=== PATIENT | female | born 1985 | race Caucasian/White ===

== ENCOUNTER → 2018-07-16 18:22 | Outpatient (CLI) | payer OTHER, SELFPAY ==
[2018-07-16 18:46] LABS: Add Manual Diff / Slide Review NO; Basophils Absolute Auto 100 /uL (0-100); Basophils Percent Auto 0.6 % (0-2); Eosinophils Absolute Auto 400 /uL (0-450); Eosinophils Percent Auto 3.3 % (2-4); Hematocrit 43.3 % (36-46); Hemoglobin 14.7 g/dL (12.0-16.0); Lymphocytes Absolute Auto 4300 /uL (1100-4500); Lymphocytes Percent Auto 36.6 % (25-40); Mean Corpuscular HGB Conc 33.9 % (30-36); Mean Corpuscular Hemoglobin 30.5 PG (26-34); Mean Corpuscular Volume 89.9 fL (80-100); Monocytes Absolute Auto 700 /uL (0-900); Monocytes Percent Auto 6.3 % (3-14); Neutrophils Absolute Auto 6300 /uL (1500-7000); Neutrophils Percent Auto 53.2 % (50-75); Platelet Count 413 X10^3/uL (150-400); Red Blood Cell Count 4.82 X10^6/uL (4.0-5.2); Red Cell Distribution Width 12.4 % (11.6-14.8); White Blood Cell Count 11.8 X10^3/uL (4.5-11.0)
[2018-07-16 19:46] LABS: D Dimer < 200 ng/mL (<230)
== END ==
PROVIDERS: Visit Provider Physician Assistant
DX: R05 Cough (principal)
CPT/HCPCS: 85025; 85379

== ENCOUNTER → 2018-07-16 18:34 | Outpatient (CLI) | payer OTHER, SELFPAY ==
--- NOTE | 2018-07-16 18:36 | DI.RAD.S_ITS ---
PROCEDURE: XR CHEST 2V INDICATIONS: chronic cough TECHNIQUE: 2 views of the chest were acquired. COMPARISON: None. FINDINGS: Surgical changes and devices: None. Lungs and pleura: Lungs are clear. No pleural effusions or pneumothorax. Mediastinum: Mediastinal contours are normal. Heart size is normal. Bones and chest wall: No suspicious bony abnormalities. Soft tissues appear unremarkable. IMPRESSION: Normal chest. Dictated by: Liana Armijo M.D. on 07/16/2018 at 19:09 Approved by: Liana Armijo M.D. on 07/16/2018 at 19:09
== END ==
PROVIDERS: Visit Provider Physician Assistant
DX: R05 Cough (principal)
CPT/HCPCS: 71046; 85025; 85379

== ENCOUNTER 2020-01-24 17:40 | Emergency (ER) | payer OTHER, SELFPAY ==
[2020-01-24 17:42] VITALS: BP 172/97; PULSE 99; RESP 18; TEMP 36.8; O2SAT 98
--- NOTE | 2020-01-24 19:15 | ED_ITS ---
HPI - Wound/Laceration <ROSA Hall - Last Filed: 01/25/20 00:27> General Chief Complaint: Wound/Laceration Stated Complaint: LACERATION OF LEFT HAND Time Seen by Provider: 01/24/20 18:53 Source: patient Mode of arrival: Ambulatory Limitations: no limitations History of Present Illness HPI narrative: This is a 34 year female, nonsmoker, who has noncontributory medical history presents to ED with superficial laceration to non dominant hand left dorsal wrist after hit by a metal cable piece at work at 1600. Patient reports last tetanus immunization was updated about 2-3 years ago. Pain is tolerable. She arrived with a 1 steri strip but reports the wound had not been cleaned well. Patient reports she is able to flex and extend her affected wrist without difficulty. Reports intact sensations distally and is able to move her fingers. Related Data Allergies Allergy/AdvReac Type Severity Reaction Status Date / Time No Known Drug Allergies Allergy Verified 01/24/20 17:45 Review of Systems <ROSA Hall - Last Filed: 01/25/20 00:27> Review of Systems Narrative: Respiratory: Denies dyspnea, cough, wheezing, hemoptysis, sputum. Cardiovascular: Denies chest pain, palpitations, orthopnea, edema. Gastrointestinal: Denies nausea, vomiting, abdominal pain, diarrhea, constipation, melena. Musculoskeletal: Denies weakness, joint pain or bony pain. Skin: See HPI Patient History <ROSA Hall - Last Filed: 01/25/20 00:27> Medical History No significant past medical history (Acute) Surgical History No pertinent past surgical history (Acute) Social History Smoking Status: Never smoker Smoking Status: Never smoker Exam <ROSA Hall - Last Filed: 01/25/20 00:27> Narrative Exam Narrative: General appearance: well developed, well nourished, in no acute distress. Head: normocephalic, atraumatic, no scalp lesions, non-tender. ENT: Hearing grossly intact. Airway patent. Neck/Thyroid: neck supple, full range of motion, no visible masses or meningeal signs. No JVD, non-tender without lymphadenopathy. Skin: about 2 cm superficial laceration on dorsal aspect of left wrist. Warm and dry and appropriate color for ethnicity. Heart: no clubbing, no cyanosis, no edema. Lungs: Breathing even and unlabored. No stridor. No accessory muscles used. Able to speak in full sentences. Chest: normal shape and expansion. Abdomen: non-obese, non-distended. Neurologic: alert and oriented. Cognitive exam, LAVATORY ATTENDANT and PNS grossly intact on informal exam. Psych: good eye contact, normal affect. Initial Vital Signs Initial Vital Signs: Vital Signs Temperature 98.2 F 01/24/20 17:42 Pulse Rate 99 H 01/24/20 17:42 Respiratory Rate 18 01/24/20 17:42 Blood Pressure 172/97 H 01/24/20 17:42 Pulse Oximetry 98 01/24/20 17:42 Extrem Left upper extremity: wrist Details: tenderness (Mild), normal ROM, laceration, normal vascular exam and radial pulse present; no swelling and no deformity and hand Details: normal capillary refill, neuromotor exam normal, neurosensory exam normal, vascular exam Details: radial pulse present and normal capillary refill and normal ROM of fingers <Danilo Garcia DO - Last Filed: 01/25/20 00:33> Initial Vital Signs Initial Vital Signs: Vital Signs Temperature 98.2 F 01/24/20 17:42 Pulse Rate 99 H 01/24/20 17:42 Respiratory Rate 18 01/24/20 17:42 Blood Pressure 172/97 H 01/24/20 17:42 Pulse Oximetry 98 01/24/20 17:42 Procedures <ROSA Hall - Last Filed: 01/25/20 00:27> Laceration Repair Laceration 1: Site: hand Side (If applicable): left Size (cm): 2 Description: linear Pre-repair: wound explored and irrigated extensively Skin layer closed with: dermabond Scores <ROSA Hall - Last Filed: 01/25/20 00:27> GCS Mil coma scale eye opening: Spontaneous Mil coma scale verbal response: Orientated Mil coma scale motor response: Obey commands Mil coma scale total score: 15 Course <ROSA Hall - Last Filed: 01/25/20 00:27> Vital Signs Vital signs: Vital Signs - 8 hr 01/24/20 17:42 Temperature 98.2 F Pulse Rate 99 H Respiratory Rate 18 Blood Pressure 172/97 H Pulse Oximetry 98 <Danilo Garcia DO - Last Filed: 01/25/20 00:33> Vital Signs Vital signs: Vital Signs - 8 hr 01/24/20 17:42 Temperature 98.2 F Pulse Rate 99 H Respiratory Rate 18 Blood Pressure 172/97 H Pulse Oximetry 98 MDM - Wound/Laceration <ROSA Hall - Last Filed: 01/25/20 00:27> Differential Diagnosis Differential diagnosis: Likely laceration Medical Records Attestation: I reviewed the patient's medical records. [facility] [place] Narrative Medical decision making narrative: This is a 34 year female presents to ED with superficial laceration on non dominant hand, left dorsal aspect of wrist from a metal piece. Patient is able to flex and extend the wrist without difficulty. She has intact sensation and brisk cap refill. Affected site was cleaned with Hibiclens and water. Superficial laceration was repaired with Dermabond and Steri-Strips to reinforce. Tetanus immunization is up-to-date. Return precautions were discussed with patient and she verbalized understanding in agreement with the treatment plan. Discharge Plan Departure Patient Disposition: Home Clinical Impression: Laceration Discharge Date/Time: 01/24/20 19:45 Instructions: DI for Laceration Repair-Skin Glue Activity Restrictions/Additional Instructions: You have been diagnosed with [laceration repaired with Dermabond and Steri- Strips. ]. What to do: *Take your medications as directed. You can take [id number] Tylenol and or Motrin as needed for discomfort. My Dermabond DC: Please do not get your wound soaked in the water until the laceration has healed. Keep your dressing intact for next 24 hrs. After then, you could remove your dressing, wash with soap and water. Pat dry with clean papertowel and dress it. Please avoid using oil based ointment, cream, lotion and etc since this may make dermabond lose and remove prematurely. Dermabond will come off in 5-7 days on its own. Do not peel this off or pick on it. You can change dressing as needed and daily. Please monitor for signs and symptoms for infection such as increasing redness, swelling, warmth, pain, fever, purulent discharge. If this occurs, please return to ED or follow up with your primary care physician since your wound may be infected. Please follow up with your primary care provider in 2-3 days for recheck wound. Please keep your wound clean, dry and intact all times. Steri-Strips will come off in7-10 days on its own. *Follow up with your primary care provider in 2-3 days, call for an appointment. Let them know you were seen in the ED and that we asked you to be seen in follow up. *Return to ED if you have any new, worsening, or concerning symptoms, such as [signs and symptoms of infection as discussed above, chest pain, breathing difficulty, unable to tolerate fluids, or any acute concerns]. Referrals: [facility] [Outside] <Danilo Garcia, DO - Last Filed: 01/25/20 00:33> [facility]ign [facility] Attestation: Dr Garcia Co-Sign Statement: I was available for consultation during this patient's emergency department visit. This chart is signed by myself for administrative purposes only. I did not have direct contact with this patient during this visit. They were seen independently by the APC.
== END 2020-01-24 19:45 | disposition home or self-care (01) ==
PROVIDERS: Emergency Provider Nurse Practitioner Family
DX: S61.512A Laceration without foreign body of left wrist, initial encounter (principal); W26.8XXA Contact with other sharp object(s), not elsewhere classified, initial encounter
CPT/HCPCS: 99282

== ENCOUNTER → 2022-04-15 07:11 | Outpatient (CLI) | payer OTHER, SELFPAY ==
[2022-04-15 08:22] LABS: Add Manual Diff / Slide Review NO; Basophils Absolute Auto 100 /uL (0-100); Basophils Percent Auto 0.8 % (0-2); Eosinophils Absolute Auto 300 /uL (0-450); Eosinophils Percent Auto 2.9 % (2-4); Hematocrit 40.8 % (36-46); Hemoglobin 14.3 g/dL (12.0-16.0); Lymphocytes Absolute Auto 3400 /uL (1100-4500); Lymphocytes Percent Auto 33.7 % (25-40); Mean Corpuscular HGB Conc 35.1 % (30-36); Mean Corpuscular Hemoglobin 31.4 PG (26-34); Mean Corpuscular Volume 89.5 fL (80-100); Monocytes Absolute Auto 700 /uL (0-900); Monocytes Percent Auto 6.8 % (3-14); Neutrophils Absolute Auto 5600 /uL (1500-7000); Neutrophils Percent Auto 55.8 % (50-75); Platelet Count 386 X10^3/uL (150-400); Red Blood Cell Count 4.56 X10^6/uL (4.0-5.2); Red Cell Distribution Width 12.1 % (11.6-14.8)
[2022-04-15 08:47] LABS: Alanine Aminotransferase 117 IU/L (<35); Albumin 4.5 g/dL (3.5-5.0); Albumin Globulin Ratio 1.3 (1.0-2.8); Alkaline Phosphatase 77 U/L (38-126); Aspartate Aminotransferase 52 IU/L (14-36); BUN Creatinine Ratio 26.4 (6-22); Bilirubin Total 0.5 mg/dL (0.2-1.3); Blood Urea Nitrogen 19 mg/dL (7-17); Calcium 9.7 mg/dL (8.4-10.2); Carbon Dioxide 27 mmol/L (22-32); Chloride 103 mmol/L (98-107); Cholesterol 180 mg/dL (140-199); Estimated Glomerular Filt Rate > 60 mL/min (>60); Globulin 3.4 g/dL (1.7-4.1); Glucose 103 mg/dL (70-100); HDL Cholesterol 53 mg/dL (40-60); HEMOLYSIS < 15 (0-50); LDL Cholesterol Calculated 95 mg/dL (<100); Potassium 4.3 mmol/L (3.4-5.1); Sodium 137 mmol/L (137-145); Total Protein 7.9 g/dL (6.3-8.2); Triglycerides 162 mg/dL (35-150)
== END ==
PROVIDERS: PCP Family Medicine; Referring Provider Family Medicine; Visit Provider Family Medicine
DX: R06.02 Shortness of breath (principal); Z13.29 Encounter for screening for other suspected endocrine disorder; Z13.0 Encounter for screening for diseases of the blood and blood-forming organs and certain disorders involving the immune mechanism; Z13.220 Encounter for screening for lipoid disorders
CPT/HCPCS: 36415; 80053; 80061; 84443; 85025

== ENCOUNTER → 2024-04-14 06:20 | Outpatient (CLI) | payer OTHER, SELFPAY ==
--- NOTE | 2024-04-14 06:21 | DI.US.S_ITS ---
PROCEDURE: US PELVIC COMPLETE INDICATIONS: DUB TECHNIQUE: Real-time scanning was performed of the pelvic organs, with image documentation. Additional endovaginal scanning was necessary due to incomplete visualization of the adnexal and endometrial structures by transabdominal scanning. COMPARISON: None. FINDINGS: Uterus: Uterus is anteverted and normal in size at 7.6 x 3.7 x 4.8 cm. The myometrium is heterogeneous. The endometrium measures 10.2 mm combined thickness. several tiny nabothian cyst in the cervix. Normal vascularity in the uterus and endometrium. Ovaries: The right ovary measures 2.6 x 2.7 x 1.8 cm, with a calculated ovarian volume of 6.5 cc. The left ovary measures 3.4 x 3.4 x 1.7 cm, with a calculated ovarian volume of 10.5 cc. The ovaries have a normal sonographic appearance. Dominant follicle in the left ovary measuring 1.9 cm. No adnexal masses are seen. Other: No pathologic free abdominal or pelvic fluid. Trace physiologic cul-de-sac fluid. IMPRESSION: Mildly heterogeneous uterine myometrium. Consider adenomyosis in the appropriate clinical scenario. Normal ovaries. We strive to produce accurate, complete, and clear reports of imaging services. To assist us in improving patient care, this report was composed using standard report templates and voice recognition software. Therefore, it may contain abnormal punctuation, insertions and/or omissions. Occasional wrong-word or sound-alike substitutions may occur. Though we review the report and make efforts to correct it, we do recommend that the report be read carefully in proper context to recognize any text inaccuracies. Dictated by: Liana Armijo M.D. on 04/14/2024 at 9:48 Approved by: Liana Armijo M.D. on 04/14/2024 at 9:52
[2024-04-14 08:19] LABS: Add Manual Diff / Slide Review NO; Basophils Absolute Auto 100 /uL (0-100); Basophils Percent Auto 0.6 % (0-2); Eosinophils Absolute Auto 200 /uL (0-450); Eosinophils Percent Auto 1.6 % (2-4); Hematocrit 44.1 % (36-46); Lymphocytes Absolute Auto 4200 /uL (1100-4500); Lymphocytes Percent Auto 33.1 % (25-40); Mean Corpuscular HGB Conc 34.1 % (30-36); Mean Corpuscular Hemoglobin 31.4 PG (26-34); Mean Corpuscular Volume 91.9 fL (80-100); Monocytes Absolute Auto 900 /uL (0-900); Monocytes Percent Auto 7.5 % (3-14); Neutrophils Absolute Auto 7200 /uL (1500-7000); Neutrophils Percent Auto 57.2 % (50-75); Platelet Count 384 X10^3/uL (150-400); Red Blood Cell Count 4.79 X10^6/uL (4.0-5.2); Red Cell Distribution Width 12.3 % (11.6-14.8); White Blood Cell Count 12.7 X10^3/uL (4.5-11.0)
[2024-04-14 08:34] LABS: HEMOLYSIS < 15 (0-50); Iron 82 ug/dL (37-170)
[2024-04-14 08:35] LABS: Alanine Aminotransferase 163 IU/L (<35); Albumin 4.7 g/dL (3.5-5.0); Albumin Globulin Ratio 1.5 (1.0-2.8); Alkaline Phosphatase 67 U/L (38-126); Aspartate Aminotransferase 76 IU/L (14-36); BUN Creatinine Ratio 16.1 (6-22); Bilirubin Total 0.4 mg/dL (0.2-1.3); Blood Urea Nitrogen 14 mg/dL (7-17); Calcium 10.1 mg/dL (8.4-10.2); Carbon Dioxide 26 mmol/L (22-32); Chloride 104 mmol/L (98-107); Cholesterol 203 mg/dL (140-199); Estimated Glomerular Filt Rate > 60 mL/min (>60); Globulin 3.1 g/dL (1.7-4.1); Glucose 98 mg/dL (70-100); HDL Cholesterol 73 mg/dL (40-60); HEMOLYSIS < 15 (0-50); LDL Cholesterol Calculated 109 mg/dL (<100); Potassium 4.6 mmol/L (3.4-5.1); Sodium 139 mmol/L (137-145); Total Protein 7.8 g/dL (6.3-8.2); Triglycerides 103 mg/dL (35-150)
[2024-04-14 08:48] LABS: Percent Iron Saturation 26 % (15-50); Total Iron Binding Capacity 319 ug/dL (265-497); Transferrin 306 mg/dL (206-381)
[2024-04-14 08:50] LABS: Prolactin 30.3 ng/mL (3.0-18.6)
[2024-04-14 08:51] LABS: Follicle Stimulating Hormone 3.35 mIU/mL; Luteinizing Hormone 8.08 mIU/mL; Vitamin D 25 Hydroxy (D3) 33.3 ng/mL (30.0-100.0)
[2024-04-14 09:11] LABS: TSH w/ Reflex to FT4 3.05 uIU/mL (0.47-4.68)
[2024-04-14 09:47] LABS: Folate 17.1 ng/mL (2.76-20.0); Vitamin B12 853 pg/mL (239-931)
[2024-04-15 04:08] LABS: RPR Screen Non Reactive (Non Reactive)
== END ==
PROVIDERS: PCP Family Medicine; Referring Provider Family Medicine; Visit Provider Family Medicine
DX: N93.9 Abnormal uterine and vaginal bleeding, unspecified (principal); E55.9 Vitamin D deficiency, unspecified; L65.9 Nonscarring hair loss, unspecified; D18.00 Hemangioma unspecified site; R87.9 Unspecified abnormal finding in specimens from female genital organs
CPT/HCPCS: 36415; 76830; 76856; 80053; 80061; 82306; 82607; 82746; 83001; 83002; 83540; 83550; 84146; 84443; 85025; 86592; 86695; 86696

== ENCOUNTER → 2024-05-13 17:03 | Outpatient (CLI) | payer OTHER, SELFPAY | PROVIDERS: PCP Family Medicine; Visit Provider Family Medicine | DX: N89.8 Other specified noninflammatory disorders of vagina (principal); Z12.4 Encounter for screening for malignant neoplasm of cervix; R79.89 Other specified abnormal findings of blood chemistry; N93.9 Abnormal uterine and vaginal bleeding, unspecified | CPT/HCPCS: 87210; 87491; 87563; 87591 ==

== ENCOUNTER → 2024-05-25 06:50 | Outpatient (CLI) | payer OTHER, SELFPAY ==
--- NOTE | 2024-05-25 06:51 | DI.US.S_ITS ---
PROCEDURE: US ABDOMEN LIMITED INDICATIONS: ELEVATED LIVER FUNCTION TESTS AND PROLACTIN TECHNIQUE: Real-time scanning was performed of the abdominal and retroperitoneal organs, with image documentation. COMPARISON: None. FINDINGS: Liver: Liver is normal in size and homogeneous in echotexture. Liver is diffusely echogenic. Gallbladder: No gallstones. Trace biliary sludge. No wall thickening. No pericholecystic edema. Negative sonographic Adams's sign. Biliary ducts: Intrahepatic bile ducts are non-dilated. Extrahepatic bile duct caliber measures 3.9 mm. Normal is 6-7 mm or less in diameter, or 10 mm or less post-cholecystectomy. Pancreas: Visualized portions of the pancreas are sonographically normal. Tail of pancreas not well visualized due to bowel gas. Miscellaneous: No free abdominal fluid. IMPRESSION: Echogenic liver. Finding typically represents fatty infiltration; however, finding is nonspecific and correlation with clinical and laboratory findings is recommended to exclude other etiologies including hepatic cirrhosis. Dictated by: Mariah Maurice MD, PhD on 05/25/2024 at 11:36 Approved by: Mariah Mauriec MD, PhD on 05/25/2024 at 11:37
--- NOTE | 2024-05-25 06:51 | DI.MRI.S_ITS ---
PROCEDURE: MR HEAD/BRAIN WO CON INDICATIONS: Elevated prolactin levels TECHNIQUE: Noncontrast axial T1 spin echo, axial T2 fast spin echo, sagittal and axial FLAIR, coronal T2 fast spin echo, axial gradient echo, axial diffusion and ADC through the brain. COMPARISON: None. FINDINGS: Image quality: Excellent. CSF Spaces: Basal cisterns are patent. No extra-axial fluid collections. Ventricles are normal in size and shape. Brain: No intracranial masses or hemorrhage. Alvarado/white matter interface is normal. Brainstem appears normal. Diffusion-weighted images demonstrate no acute infarct. No chronic ischemic insults. Normal intravascular flow voids are present. Pituitary gland has normal size and contour. Posterior pituitary bright spot is normally situated. Skull and face: Calvarium has normal marrow signal. Orbits appear normal. Sinuses: Sinuses and mastoids are clear. IMPRESSION: No intracranial disease process. Pituitary Gland normal in appearance. If there is clinical concern for pituitary microadenoma consider MRI pituitary gland with dynamic post-contrast imaging. Dictated by: Mariah Maurice MD, PhD on 05/25/2024 at 11:31 Approved by: Mariah Maurice MD, PhD on 05/25/2024 at 11:33
[2024-05-25 08:54] LABS: Alanine Aminotransferase 196 IU/L (<35); Albumin 5.1 g/dL (3.5-5.0); Albumin Globulin Ratio 1.5 (1.0-2.8); Alkaline Phosphatase 72 U/L (38-126); Aspartate Aminotransferase 82 IU/L (14-36); BUN Creatinine Ratio 15.7 (6-22); Bilirubin Total 0.6 mg/dL (0.2-1.3); Blood Urea Nitrogen 14 mg/dL (7-17); Calcium 10.2 mg/dL (8.4-10.2); Carbon Dioxide 25 mmol/L (22-32); Chloride 102 mmol/L (98-107); Estimated Glomerular Filt Rate > 60 mL/min (>60); Globulin 3.4 g/dL (1.7-4.1); Glucose 94 mg/dL (70-100); HEMOLYSIS < 15 (0-50); Potassium 4.2 mmol/L (3.4-5.1); Sodium 139 mmol/L (137-145); Total Protein 8.5 g/dL (6.3-8.2)
[2024-05-25 09:08] LABS: Prolactin 41.5 ng/mL (3.0-18.6)
[2024-05-25 09:25] LABS: Ferritin 220 ng/mL (6-137); Testosterone 26.1 ng/dL (5.71-77.0)
[2024-05-26 01:07] LABS: HBsAg Screen Negative (Negative); Hepatitis A Antibody IgM Negative (Negative); Hepatitis B Core Antibody IgM Negative (Negative); Hepatitis C Antibody Non Reactive (Non Reactive)
[2024-05-26 04:26] LABS: Ceruloplasmin 32.2 mg/dL (19.0-39.0)
[2024-05-26 16:36] LABS: Albumin 4.1 g/dL (2.9-4.4); Alpha-1-Globulin 0.3 g/dL (0.0-0.4); Alpha-2-Globulin 0.7 g/dL (0.4-1.0); Gamma Globulin 1.3 g/dL (0.4-1.8); Globulin Total 3.6 g/dL (2.2-3.9); Protein, Total 7.7 g/dL (6.0-8.5)
[2024-05-26 20:36] LABS: Deamidated Gliadin Ab IgA 6 units (0-19); Deamidated Gliadin Ab IgG 4 units (0-19); Immunoglobulin A,Qn 331 mg/dL (87-352); t-Transglutaminase IgA <2 U/mL (0-3)
[2024-05-27 12:09] LABS: Smooth Muscle Antibody 6 Units (0-19)
[2024-05-27 16:11] LABS: ANA Screen, IFA Negative (.)
[2024-05-27 17:17] LABS: Estrogen 218 pg/mL (.)
== END ==
PROVIDERS: PCP Family Medicine; Referring Provider Family Medicine; Visit Provider Family Medicine
DX: N93.9 Abnormal uterine and vaginal bleeding, unspecified (principal); N89.8 Other specified noninflammatory disorders of vagina; R79.89 Other specified abnormal findings of blood chemistry; Z12.4 Encounter for screening for malignant neoplasm of cervix; L65.9 Nonscarring hair loss, unspecified
CPT/HCPCS: 36415; 70551; 76705; 80053; 80074; 82390; 82672; 82728; 82784; 83516; 84146; 84155; 84165; 84403; 86015; 86038

== ENCOUNTER → 2024-06-26 08:00 | Outpatient (CLI) | payer OTHER, SELFPAY ==
[2024-06-26 08:58] LABS: Alanine Aminotransferase 122 IU/L (<35); Albumin Globulin Ratio 1.6 (1.0-2.8); Alkaline Phosphatase 67 U/L (38-126); Aspartate Aminotransferase 61 IU/L (14-36); BUN Creatinine Ratio 13.5 (6-22); Bilirubin Total 0.7 mg/dL (0.2-1.3); Blood Urea Nitrogen 12 mg/dL (7-17); Calcium 10.2 mg/dL (8.4-10.2); Carbon Dioxide 26 mmol/L (22-32); Chloride 102 mmol/L (98-107); Estimated Glomerular Filt Rate > 60 mL/min (>60); Globulin 3.2 g/dL (1.7-4.1); Glucose 106 mg/dL (70-100); HEMOLYSIS < 15 (0-50); Potassium 4.2 mmol/L (3.4-5.1); Sodium 142 mmol/L (137-145); Total Protein 8.2 g/dL (6.3-8.2)
[2024-06-26 09:13] LABS: Prolactin 28.1 ng/mL (3.0-18.6)
[2024-06-27 08:08] LABS: Alpha 1 Anti Trypsin 115 mg/dL (100-188)
== END ==
PROVIDERS: PCP Family Medicine; Referring Provider Family Medicine; Visit Provider Family Medicine
DX: R79.89 Other specified abnormal findings of blood chemistry (principal)
CPT/HCPCS: 36415; 80053; 81332; 82103; 84146

== ENCOUNTER → 2024-08-07 08:33 | Outpatient (CLI) | payer OTHER, SELFPAY ==
[2024-08-07 10:21] LABS: Alanine Aminotransferase 85 IU/L (<35); Albumin 4.6 g/dL (3.5-5.0); Albumin Globulin Ratio 1.5 (1.0-2.8); Alkaline Phosphatase 66 U/L (38-126); Aspartate Aminotransferase 50 IU/L (14-36); Bilirubin Total 0.6 mg/dL (0.2-1.3); Bilirubin Unconjugated 0.3 mg/dL (0.0-1.1); HEMOLYSIS 16 (0-50); Total Protein 7.6 g/dL (6.3-8.2)
== END ==
PROVIDERS: PCP Family Medicine; Visit Provider Internal Medicine Gastroenterology
DX: R74.8 Abnormal levels of other serum enzymes (principal); K76.0 Fatty (change of) liver, not elsewhere classified
CPT/HCPCS: 36415; 80076; 86376; 86708

== ENCOUNTER 2024-10-18 06:58 | Emergency (ER) | payer OTHER, SELFPAY ==
[2024-10-18 07:05] VITALS: BP 162/90; PULSE 107; RESP 18; TEMP 36.5; O2SAT 99; BMI 28.3
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
[2024-10-18 07:42] LABS: Add Manual Diff / Slide Review NO; Hematocrit 43.4 % (36-46); Hemoglobin 14.8 g/dL (12.0-16.0); Lymphocytes Absolute Auto 3000 /uL (1100-4500); Mean Corpuscular HGB Conc 34.2 % (30-36); Mean Corpuscular Hemoglobin 30.7 PG (26-34); Mean Corpuscular Volume 89.7 fL (80-100); Platelet Count 387 X10^3/uL (150-400)
[2024-10-18 07:49] VITALS: PULSE 96; O2SAT 96
[2024-10-18 07:50] LABS: Lipase 118 U/L (23-300)
[2024-10-18 07:52] LABS: Alanine Aminotransferase 93 IU/L (<35); Albumin 4.7 g/dL (3.5-5.0); Albumin Globulin Ratio 1.3 (1.0-2.8); Alkaline Phosphatase 70 U/L (38-126); Blood Urea Nitrogen 14 mg/dL (7-17); Calcium 9.5 mg/dL (8.4-10.2); Carbon Dioxide 25 mmol/L (22-32); Chloride 103 mmol/L (98-107); Estimated Glomerular Filt Rate > 60 mL/min (>60); Globulin 3.5 g/dL (1.7-4.1); Glucose 127 mg/dL (70-99); HEMOLYSIS < 15 (0-50); Potassium 4.0 mmol/L (3.4-5.1); Sodium 138 mmol/L (137-145); Total Protein 8.2 g/dL (6.3-8.2)
[2024-10-18 07:59] VITALS: BP 150/91; PULSE 93; O2SAT 98
[2024-10-18 08:00] VITALS: BP 148/96; PULSE 97; O2SAT 99
[2024-10-18 08:30] VITALS: BP 144/81; PULSE 93; O2SAT 98
[2024-10-18 09:00] VITALS: BP 126/81; PULSE 96; O2SAT 98
== END 2024-10-18 09:16 | disposition home or self-care (01) ==
PROVIDERS: Emergency Provider Family Medicine; PCP Family Medicine
DX: S30.1XXA Contusion of abdominal wall, initial encounter (principal); R74.01 Elevation of levels of liver transaminase levels; V40.1XXA Car passenger injured in collision with pedestrian or animal in nontraffic accident, initial encounter; Y92.410 Unspecified street and highway as the place of occurrence of the external cause
CPT/HCPCS: 36415; 71250; 74176; 80053; 83690; 85025; 99284